=== PATIENT | female | born 1990 | race Caucasian/White ===

== ENCOUNTER 2018-12-26 11:39 | Emergency (ER) | payer MEDICAID ==
[~2018-12-26] VITALS: Ht 165.1 cm; Wt 100.0 kg
[~2018-12-26 11:39] MED LIST: NITR-60 PO
[2018-12-26 12:02] VITALS: BP 132/72
[2018-12-26] MEDS ORDERED: ipratropium/albuterol 3ml nebule NEB ONE (12:10)
[2018-12-26] MEDS ORDERED: predniSONE 20 mg tablet PO ONE (12:10)
[2018-12-26] MEDS ORDERED: albuterol 2.5 MG/3 ML nebule NEB ONE (12:10)
[2018-12-26] MEDS ORDERED: ALBU18HF2 INH (14:07)
[2018-12-26] MEDS ORDERED: PRED20TA PO (14:07)
[2018-12-26] MEDS ORDERED: AZIT250T PO (14:07)
== END 2018-12-26 14:30 | disposition home or self-care (01) ==
LOC: ER 11:40
DX: J20.9 Acute bronchitis, unspecified (principal); J45.901 Unspecified asthma with (acute) exacerbation; F12.90 Cannabis use, unspecified, uncomplicated; Z56.0 Unemployment, unspecified; Z59.0 Homelessness; Z88.1 Allergy status to other antibiotic agents
CPT/HCPCS: 71046; 94640; 94760; 99283; J7512; 99284